=== PATIENT | male | born 1970 | race Two or more races ===

== ENCOUNTER → 2023-06-06 08:22 | Outpatient (REF) | payer OTHER, SELFPAY | LOC: RAD 08:22 | PROVIDERS: ATTENDING PHYSICIAN Family Medicine; REFERRING PHYSICIAN Internal Medicine Gastroenterology | DX: R74.8 Abnormal levels of other serum enzymes (principal) | CPT/HCPCS: 74160; Q9967 ==

== ENCOUNTER → 2023-12-17 14:34 | Outpatient (REF) | payer OTHER, SELFPAY | LOC: RCS 14:34 | PROVIDERS: ATTENDING PHYSICIAN Internal Medicine Cardiovascular Disease; FAMILY PHYSICIAN Family Medicine | DX: I10 Essential (primary) hypertension (principal); I25.10 Atherosclerotic heart disease of native coronary artery without angina pectoris; E78.2 Mixed hyperlipidemia | CPT/HCPCS: 93306; Q9950 ==

== ENCOUNTER 2024-01-14 06:23 | Day surgery (SDC) | payer OTHER, SELFPAY ==
[2024-01-14 09:14] VITALS: BP 129/76
[2024-01-14 09:19] LABS: Glucose - Point of Care 132 mg/dl (70-99)
[2024-01-14 09:30] VITALS: BMI 28.4
[2024-01-14 09:32] VITALS: BMI 28.4
[2024-01-14 11:28] VITALS: BP 119/48
[2024-01-14 11:30] VITALS: BP 147/87
[2024-01-14 11:45] VITALS: BP 145/89
[2024-01-14 11:45] LABS: Glucose - Point of Care 97 mg/dl (70-99)
[2024-01-14 12:00] VITALS: BP 136/112
== END 2024-01-14 12:12 | disposition home or self-care (01) ==
LOC: GI 06:23
PROVIDERS: ATTENDING PHYSICIAN Internal Medicine Gastroenterology
DX: K86.9 Disease of pancreas, unspecified (principal); R74.8 Abnormal levels of other serum enzymes
CPT/HCPCS: 43237; 82962